=== PATIENT | female | born 1960 | race Caucasian/White ===

== ENCOUNTER 2023-05-28 09:06 | Day surgery (SDC) | payer BC ==
--- NOTE | 2023-05-13 12:22 | EKG ---
Test Date: 2023-05-13 Test Time: 09:43:03 Cigar Head Puncher: IOANA MEASUREMENT RESULTS: Intervals: Rate: 71 PA: 166 QRSD: 82 QT: 406 QTc: 441 [place]: P: 55 PA: 166 QRS: 25 T: 57 INTERPRETIVE STATEMENTS: Normal sinus rhythm Low voltage QRS Borderline ECG No previous ECG available for comparison Electronically Signed On 05-13-23 12:22:11 CDT by Hector Carrera
[2023-05-28] MEDS: NA CHLORIDE 0.9% 1,000 ML ONE ×2 (09:30→09:49)
[2023-05-28] MEDS: BUPIVACAINE 0.25% PF 30 ML VIAL ONE ×2 (09:48→11:15)
[2023-05-28] MEDS: CEFOXITIN SODIUM 2 GM/VIAL ONE ×2 (09:48→10:35)
[2023-05-28] MEDS ORDERED: propofoL 200 MG/20 ML VIAL IV ONE (10:43)
[2023-05-28] MEDS ORDERED: MIDAZOLAM HCL 2 MG/2 ML INJ ONE (10:43)
[2023-05-28] MEDS ORDERED: FENTANYL CITR 100 MCG/2 ML ONE (10:43)
[2023-05-28] MEDS ORDERED: ROCURONIUM 50 MG/5 ML VIAL IV ONE (10:43)
[2023-05-28] MEDS ORDERED: ONDANSETRON 4 MG/2 ML VIAL ONE ×2 (10:44→12:12)
[2023-05-28] MEDS ORDERED: LIDOCAINE 2% MPF 5 ML VIAL ONE (10:54)
[2023-05-28] MEDS ORDERED: dexAMETHasone 10 MG/ML VIAL ONE (11:09)
[2023-05-28] MEDS ORDERED: Phenylephrine HCl 10 MG/ML 1 ML VIAL ONE (11:26)
--- NOTE | 2023-05-28 11:44 | P.OP ---
Preoperative diagnosis: Cholecystitis Postoperative diagnosis: Cholecystitis Primary procedure: Laparoscopic Cholecystectomy with ICG Cholangiography Anesthesia: GETA + Local Estimated blood loss: <2cc Specimen: Gallbladder Findings: colonic adhesions, gastric adhesions, gastric band present Complications: None Transferred to: Recovery Room Condition: Good
[2023-05-28] MEDS ORDERED: GLYCOPYRROLATE 0.2 MG/ML SYR ONE (11:49)
[2023-05-28] MEDS ORDERED: NEOSTIGMINE 1 MG/ML -10 ML VIAL ONE (11:50)
[2023-05-28] MEDS: HYDROMORPHONE HCL 1 MG/ML INJ ONE ×2 (12:12→12:25)
[2023-05-28] MEDS ORDERED: PROMETHAZINE INJ 25 MG/ML AMP ONE (12:35)
[2023-05-28] MEDS ORDERED: HYDROMORPHONE HCL 1 MG/ML INJ ONE (12:49)
[2023-05-28 12:56] VITALS: BP 103/55; TEMP 97; O2SAT 97
--- NOTE | 2023-05-28 13:41 | OP ---
Date of Procedure: 05/28/2023 Surgeon: Rhett Woodard MD, Preoperative Diagnosis: Cholecystitis. Postoperative Diagnosis: Cholecystitis. Procedure Performed: Laparoscopic cholecystectomy with indocyanine green cholangiography. Anesthesia: General endotracheal plus local with 0.25% Marcaine. Estimated Blood Loss: Less than 2 cc. Specimen: Gallbladder. Findings: There were colonic adhesions between the transverse colon and the gallbladder as well as g astric lesions to the gallbladder with a gastric band tubing running through the hepatic fossa, ultim ately making a left-hand turn to ultimately approach the stomach for the band position. There were s ignificant adhesions in the right upper quadrant caused likely due to this foreign body from the stru ctures as indicated. Complications: None. Disposition: Patient transferred to recovery room in good condition. Procedure In Detail: After informed was obtained, patient was brought to the operating room, prepped and draped in the usual sterile fashion. After adequate anesthesia was achieved, I anesthetized the supraumbilical area down to subcutaneous tissues with a 0.25% Marcaine and sharply incise. A 5 mm 0 -degree optical trocar was introduced in the abdomen without complication. Insufflation was obtained at 15 mmHg at this time. No injury to vital structures in the abdomen. Two trocars were placed, 1 in the epigastrium and 1 in the right upper quadrant. Both of these were similarly anesthetized and sharply incised, 5 mm trocar was placed under direct visualization without complication. The umbilic al trocar was then upsized to 12 mm under direct visualization without complication. The patient pos itioned head up right-side up position. Ratcheted graspers were used to grasp the patient's gallblad genoveva and placed it towards the patient's right shoulder. Dissection continued down to remove the colo anthony and gastric adhesions from the right upper quadrant as well as omental attachments using combinat ion of electrocautery and blunt dissection. After the gallbladder was freed from the above-named str uctures, I dissected down to the Isabel pouch of the gallbladder, circumferentially dissected 2 str uctures and identified both cystic duct and cystic artery. The critical view of safety was obtained at this point with the liver visualized in posterior window. I performed ICG cholangiography at this point, which confirmed the anatomy as described. I then placed double titanium clips on the proxima l side and singly on this side of both cystic duct and cystic artery. I used Endo Sen to ligate t hese structures. At this point, the gallbladder was removed the hepatic fossa with no evidence of co mplication. There was 1 additional feeding vessel on the hepatic bed approximately the midportion, w hich required a single clip. We had good hemostasis. There was no bleeding from this procedure as i t was appreciated prior to electrocautery application. At this point, the gallbladder was removed fr om the hepatic fossa, sent off for pathologic examination. The area was copiously irrigated multiple times until complete clear. Clips were found to be in good anatomic position. ICG cholangiography showed no additional spillage about the end of procedure. I suctioned out the remaining effluent. P atient was placed back in neutral position. No additional hemostat was required. I then closed the umbilical trocar site using a [place] suture passer with 0 Vicryl in interrupted fashion to a pproximate tissues. The abdomen was completely desufflated under direct vision with no evidence of c omplication. All skin edges were then copiously irrigated and closed with 4-0 Monocryl in running fa shion. Dermabond was placed over top. The patient tolerated the procedure well. No evidence of com plication. Transferred to PACU in good condition. All counts were correct at the end of the case. DHRUV/TOÑO Voice ID: [id number] Report ID: [id number]
== END 2023-05-28 14:10 | disposition home or self-care (01) ==
LOC: OR 09:06
PROVIDERS: ATTEND Surgery
PROC: BF50200 Other Imaging of Bile Ducts using Fluorescing Agent, Indocyanine Green Dye, Intraoperative (ICD-10-PCS; 2023-05-28)
PROC: 0FT44ZZ Resection of Gallbladder, Percutaneous Endoscopic Approach (ICD-10-PCS; principal; 2023-05-28 10:30)
DX: K81.1 Chronic cholecystitis (principal); D13.5 Benign neoplasm of extrahepatic bile ducts
CPT/HCPCS: 93005; 80048; 36415; 82947 ×2; 88304; 47563; J2550; J2704; J2710; J2371; J2001; J2250; J3010; J1100; J1170 ×2; J0694; J2405 ×2; J7030